=== PATIENT | male | born 1950 | race Caucasian/White ===

== ENCOUNTER → 2018-05-12 | Outpatient (REF) | payer MEDICARE, OTHER | LOC: M LAB REF 11:50 | DX: Z01.89 Encounter for other specified special examinations (principal) | CPT/HCPCS: 86803 ==

== ENCOUNTER → 2018-12-25 | Outpatient (CLI) | payer MEDICARE, OTHER ==
--- NOTE | 2018-12-25 14:42 | REP ---
Clinical: Cough . Comparison: 02/01/2009 Technique: PA and lateral. Findings: The mediastinum and cardiac silhouette are normal. The lung joyce suggest mild fibroatelectatic changes at the left base without acute consolidation, effusion, or pneumothorax. The skeletal structures are intact and normal. Impression: Chronic versus acute fibroatelectatic changes at the left base. Electronically Signed by Jase Wei MD 12/25/2018 02:34 P
== END ==
LOC: M WUC 14:08
PROVIDERS: ATTEND Family Medicine
DX: R05 Cough (principal)

== ENCOUNTER → 2019-09-19 | Outpatient (REF) | payer MEDICARE, OTHER | LOC: M SFHCPLAZ 10:03 | PROVIDERS: ATTEND Dermatology | DX: B08.1 Molluscum contagiosum (principal); L57.0 Actinic keratosis; L82.1 Other seborrheic keratosis ==

== ENCOUNTER → 2020-10-16 | Outpatient (REF) | payer MEDICARE, OTHER | LOC: M LAB REF 17:08 | PROVIDERS: ATTEND Dermatology | DX: L82.0 Inflamed seborrheic keratosis (principal) | CPT/HCPCS: 11311; 17000; 17003; 88305; G0463 ==

== ENCOUNTER 2021-04-24 17:43 | Emergency (ER) | payer MEDICARE, OTHER ==
[~2021-04-24] VITALS: Ht 180.3 cm; Wt 108.6 kg
--- NOTE | 2021-04-24 19:14 | REP ---
INDICATION: ABD PAIN/CONSTIPATION. COMPARISON: Comparison radiograph June 14, 2014.. TECHNIQUE: KUB: Two views provided. FINDINGS: There is formed stool in the ascending and transverse segments of the colon. There is no evidence of colonic dilation. No small bowel dilation is seen. No evidence of constipation seen radiographically. There is a mild levoconvex curvature in the lumbar spine unchanged. No mass, organomegaly, or pathologic calcification is seen. IMPRESSION: Normal bowel gas pattern. Levoconvex curve in the lumbar spine. No acute abnormality. <Electronically signed by Krystian Hernandez > 04/24/21 [id number]
[2021-04-24 19:52] LABS: BASO # 0.1 10^3/uL (0.0-0.2); BASO % 0.6 % (0.0-1.0); EOS % 0.4 % (0.0-3.0); HEMATOCRIT 42.4 % (42.0-52.0); LYMPH # 0.7 10^3/uL (1.5-5.0); MEAN CORPUSCULAR VOLUME 93.8 fl (80.0-96.0); MONO # 0.6 10^3/uL (0.0-0.8); MONO % 6.1 % (2.0-8.0); NEUTROPHILS # 7.6 10^3/uL (1.5-8.5); NEUTROPHILS % 84.3 % (36.0-66.0); PLATELET COUNT, AUTOMATED 221 10^3/uL (150-450); RED BLOOD COUNT 4.52 10^6/uL (4.30-6.10)
[2021-04-24] MEDS ORDERED: NS 1,000 ML IV SCH (20:10)
[2021-04-24 20:24] LABS: ALBUMIN 3.9 GM/DL (3.2-5.2); ALT/SGPT 28 U/L (12-78); BILIRUBIN,DIRECT 0.2 MG/DL (0.0-0.2); BILIRUBIN,TOTAL 0.8 MG/DL (0.2-1.0); BLOOD UREA NITROGEN 20 MG/DL (7-18); CARBON DIOXIDE LEVEL 29 MEQ/L (21-32); CHLORIDE LEVEL 106 MEQ/L (98-107); CREATININE FOR GFR 0.82 MG/DL (0.70-1.30); GLOMERULAR FILTRATION RATE > 60.0 (>42); GLUCOSE, FASTING 100 MG/DL (70-100); LIPASE 170 U/L (73-393); SODIUM LEVEL 139 MEQ/L (136-145); TOTAL PROTEIN 6.6 GM/DL (6.4-8.2)
[2021-04-24] MEDS ORDERED: ISOVUE-370 76% 100ML VIAL As Ordered ONE (20:34)
--- NOTE | 2021-04-24 20:56 | REPVR ---
PROCEDURE INFORMATION: Exam: US Scrotum Exam date and time: 04/24/2021 8:46 PM Age: 70 years old Clinical indication: Scrotum pain; Additional info: Bilat testicular pain R/O torsion TECHNIQUE: Imaging protocol: Real-time ultrasound of the scrotum and contents with color Doppler and image documentation. COMPARISON: No relevant prior studies available. FINDINGS: Right testicle: The right testis demonstrates homogeneous parenchyma and measures 2.4 x 3.6 x 1.9 cm. There is normal color flow and normal Doppler waveform tracing. Left testicle: The left testis is homogeneous and measures 2.7 x 4.1 x 1.8 cm and demonstrates normal color flow and Doppler waveform tracings. Epididymides: The right epididymal head measures 6 mm. The right epididymal tail measures 10 mm. The left epididymal head measures 12 mm and demonstrates a cyst measuring 12 x 10 x 8 mm. Scrotum: There is minimal bilateral hydroceles. IMPRESSION: 1. Minimal bilateral hydroceles. 2. Left epididymal cyst measuring 8 x 10 x 12 mm. 3. Otherwise negative testicular sonogram with bilateral blood flow. No torsion. Electronically signed by: Aaron Guerin On 04/24/2021 20:56:11 PM
--- NOTE | 2021-04-24 21:39 | REPVR ---
PROCEDURE INFORMATION: Exam: CT Abdomen And Pelvis With Contrast Exam date and time: 04/24/2021 9:02 PM Age: 70 years old Clinical indication: Other: Rlq pain TECHNIQUE: Imaging protocol: Computed tomography of the abdomen and pelvis with contrast. Radiation optimization: All CT scans at this facility use at least one of these dose optimization techniques: automated exposure control; mA and/or kV adjustment per patient size (includes targeted exams where dose is matched to clinical indication); or iterative reconstruction. Contrast material: ISOVUE 370; Contrast volume: 100 ml; Contrast route: INTRAVENOUS (IV); COMPARISON: AL Abdomen,Flat Plate KUB 04/24/2021 6:18 PM FINDINGS: Lungs: Minimal bibasilar fibro-atelectatic change. Liver: The liver attenuation is 73 Hounsfield units and the spleen is 103 Hounsfield units. Mobile cecum extending anterior to the liver. Gallbladder and bile ducts: Question of punctate calculus in the gallbladder. Pancreas: Normal. No ductal dilation. Spleen: Normal. No splenomegaly. Adrenal glands: Normal. No mass. Kidneys and ureters: There are bilateral renal cysts measuring up to 5.7 cm on the right with a Hounsfield measurement of 3. These appear to reflect simple cysts. No follow-up imaging is recommended. Nonobstructing bilateral renal calculi. Asymmetric right perinephric stranding and fluid with mild right hydronephrosis and hydroureter with periureteral edema extending to the right UVJ. There is a 3 mm calculus in the distal UVJ. Stomach and bowel: There is a diverticulum projecting from the proximal duodenal sweep. There is colonic diverticulosis without evidence of diverticulitis. Slight colonic wall thickening, greatest in the left colon. Appendix: There are no changes of appendicitis. A normal appendix is not seen. Intraperitoneal space: Unremarkable. No free air. No significant fluid collection. Vasculature: Unremarkable. No abdominal aortic aneurysm. Lymph nodes: Unremarkable. No enlarged lymph nodes. Urinary bladder: Unremarkable as visualized. Reproductive: There is mild prostatic enlargement. Bones/joints: Lumbar levoscoliosis centered at L2. Soft tissues: Mild fat filled right inguinal hernia minimal fat filled left inguinal hernia. IMPRESSION: 1. Distal right UVJ calculus measuring 3 mm with obstructive uropathy of the right upper tract. 2. Nonobstructing bilateral renal calculi. 3. Question of punctate stone in the gallbladder. 4. Colonic diverticulosis without diverticulitis. 5. Mild prostatic enlargement. 6. Question of minimal nonspecific pancolitis, greatest in the left colon. 7. Mild fat filled right inguinal hernia and minimal fat filled left inguinal hernia. COMMENTS: Consistent with the [employer]'s Incidental Findings Committee white paper (J Am Mohan [employer]iol 2018): Any incidental renal lesion less than 1 cm or classified as too small to characterize, or any incidental cystic renal lesion characterized as simple-appearing, is likely benign. No follow-up imaging is recommended for these lesions per consensus recommendations based on imaging criteria. Electronically signed by: Aaron Guerin On 04/24/2021 21:38:42 PM
[2021-04-24 22:15] VITALS: BP 140/73
--- NOTE | 2021-04-27 07:58 | ED PDOC ---
Post-Departure Follow-Up radiology report faxed to Natalia Rivers MD April 27, 2021 07:58
== END 2021-04-24 23:26 | disposition home or self-care (01) ==
LOC: M ED 17:43
DX: N20.1 Calculus of ureter (principal); N13.9 Obstructive and reflux uropathy, unspecified; N43.3 Hydrocele, unspecified; N50.3 Cyst of epididymis; N50.811 Right testicular pain; N50.812 Left testicular pain; K59.00 Constipation, unspecified; I10 Essential (primary) hypertension; E78.9 Disorder of lipoprotein metabolism, unspecified; K21.9 Gastro-esophageal reflux disease without esophagitis; Z79.899 Other long term (current) drug therapy
CPT/HCPCS: 74018; 74177; 76870; 80048; 80076; 81001; 83690; 85025; 96360; 96361; 99284; Q9967

== ENCOUNTER → 2021-04-25 | Outpatient (REF) | payer MEDICARE, OTHER | LOC: M SMT 12:56 | PROVIDERS: ATTEND Specialist | DX: N20.0 Calculus of kidney (principal) ==

== ENCOUNTER → 2022-05-07 | Outpatient (REF) | payer MEDICARE, OTHER | LOC: M SFHCDERM 09:21 | PROVIDERS: ATTEND Physician Assistant | DX: C44.622 Squamous cell carcinoma of skin of right upper limb, including shoulder (principal) ==

== ENCOUNTER → 2022-06-11 | Outpatient (REF) | payer MEDICARE, OTHER | LOC: M LAB REF 17:21 | PROVIDERS: ATTEND Surgery | DX: C44.622 Squamous cell carcinoma of skin of right upper limb, including shoulder (principal) ==

== ENCOUNTER 2023-06-14 20:41 | Emergency (ER) | payer MEDICARE, OTHER ==
[~2023-06-14] VITALS: Ht 180.3 cm; Wt 106.8 kg
[2023-06-14 21:39] LABS: BASO % 0.3 % (0.0-1.0); EOS # 0.1 10^3/uL (0.0-0.5); EOS % 1.5 % (0.0-3.0); HEMATOCRIT 42.6 % (42.0-52.0); HEMOGLOBIN 14.3 g/dl (13.5-17.5); LYMPH # 1.1 10^3/uL (1.5-5.0); LYMPH % 16.1 % (24.0-44.0); MEAN CORPUSCULAR HEMOGLOBIN 31.5 pg (27.0-33.0); MEAN CORPUSCULAR HGB CONC 33.6 g/dl (32.0-36.5); MEAN CORPUSCULAR VOLUME 93.8 fl (80.0-96.0); MONO # 0.5 10^3/uL (0.0-0.8); MONO % 7.9 % (2.0-8.0); NEUTROPHILS % 73.9 % (36.0-66.0); PLATELET COUNT, AUTOMATED 213 10^3/uL (150-450); RED BLOOD COUNT 4.54 10^6/uL (4.30-6.10); WHITE BLOOD COUNT 6.7 10^3/uL (4.0-10.0)
[2023-06-14 21:57] LABS: INR 0.96
[2023-06-14 22:03] LABS: LIPASE 124 U/L (12-53)
[2023-06-14 22:06] LABS: ALBUMIN 3.7 G/DL (3.2-5.2); ALKALINE PHOSPHATASE 72 U/L (46-116); ALT/SGPT 24 U/L (7.0-40); AST/SGOT 13 U/L (<34); BILIRUBIN,DIRECT 0.3 MG/DL (<0.4); BILIRUBIN,TOTAL 0.8 MG/DL (0.3-1.2); BLOOD UREA NITROGEN 17 MG/DL (9-23); CALCIUM LEVEL 8.7 MG/DL (8.3-10.6); CARBON DIOXIDE LEVEL 28 MMOL/L (20-31); CHLORIDE LEVEL 108 MMOL/L (98-107); CREATININE FOR GFR 0.75 MG/DL (0.70-1.30); GLOMERULAR FILTRATION RATE > 60.0 (>42); GLUCOSE, FASTING 93 MG/DL (74-106); POTASSIUM SERUM 3.9 MMOL/L (3.5-5.1); SODIUM LEVEL 144 MMOL/L (136-145); TOTAL PROTEIN 6.1 G/DL (5.7-8.2)
[2023-06-14] MEDS ORDERED: ISOVUE-370 76% 100ML VIAL As Ordered ONE (22:43)
[2023-06-15] MEDS ORDERED: CIPROFLOXACIN 500MG TABLET PO ONE (00:10)
[2023-06-15] MEDS ORDERED: metroNIDAZOLE (FLAGYL) 500MG TABLET PO ONE (00:10)
[2023-06-15] MEDS ORDERED: NORCO 5/325MG TABLET (HOME DOSE PACK) PO ONE (00:10)
[2023-06-15] MEDS ORDERED: ONDA4TAB6 PO (00:16)
[2023-06-15] MEDS ORDERED: CIPR-249 PO (00:16)
[2023-06-15] MEDS ORDERED: METR-265 PO (00:16)
[2023-06-15 00:30] VITALS: BP 141/78; TEMP 98.1; O2SAT 96
== END 2023-06-15 00:42 | disposition home or self-care (01) ==
LOC: M ED 20:41
DX: K92.2 Gastrointestinal hemorrhage, unspecified (principal); K57.32 Diverticulitis of large intestine without perforation or abscess without bleeding; I10 Essential (primary) hypertension; K21.9 Gastro-esophageal reflux disease without esophagitis; E78.5 Hyperlipidemia, unspecified; N40.0 Benign prostatic hyperplasia without lower urinary tract symptoms; Z79.01 Long term (current) use of anticoagulants; Z79.82 Long term (current) use of aspirin
CPT/HCPCS: 74177; 80048; 80076; 83690; 85025; 85610; 86850; 86900; 86901; 93041; 99285; Q9967

== ENCOUNTER 2023-08-12 10:37 | Day surgery (SDC) | payer MEDICARE, OTHER ==
[~2023-08-12] VITALS: Ht 180.3 cm; Wt 105.6 kg
[~2023-08-12 10:37] MED LIST: ATOR40TA75 PO; BAYE81TA10 PO; CIPR-249 PO; DOCU100C16 PO; LISI10TA22 PO; METR-265 PO; NS 1,000 ML IV ONE; OMEP40CA5 PO; ONDA4TAB6 PO; OXYB10TA23 PO; TAMS1CAP17 PO
[2023-08-12] MEDS ORDERED: propofoL 200 MG/20 ML VIAL As Ordered ONE (12:12)
[2023-08-12] MEDS ORDERED: LIDOCAINE 2% 100MG/5ML SDV (FOR ANES.) As Ordered ONE (12:12)
[2023-08-12 13:16] VITALS: BP 140/76; TEMP 97.3; O2SAT 98
== END 2023-08-12 13:21 | disposition home or self-care (01) ==
LOC: M OPP 10:37
PROVIDERS: ATTEND Internal Medicine Gastroenterology
DX: Z12.11 Encounter for screening for malignant neoplasm of colon (principal); K64.0 First degree hemorrhoids; K57.30 Diverticulosis of large intestine without perforation or abscess without bleeding; I10 Essential (primary) hypertension; E78.5 Hyperlipidemia, unspecified; N40.0 Benign prostatic hyperplasia without lower urinary tract symptoms; Z79.899 Other long term (current) drug therapy

== ENCOUNTER → 2024-11-16 | Outpatient (REF) | payer MEDICARE, OTHER ==
[~2024-11-16] MED LIST changes: -NS 1,000 ML IV ONE; +ONDA-282 PO; -ONDA4TAB6 PO
== END ==
LOC: M SFHCDERM 17:31
PROVIDERS: ATTEND Physician Assistant
DX: D48.9 Neoplasm of uncertain behavior, unspecified (principal)